=== PATIENT | male | born 1945 | race African-American/Black ===

== ENCOUNTER 2020-11-27 16:48 | Inpatient (IN) | payer MEDICARE, OTHER ==
[~2020-11-27] VITALS: Ht 180.3 cm; Wt 167.8 kg
[2020-11-27 17:53] LABS: BASOPHILS # (AUTO) 0.1 (0.0-0.1); BASOPHILS % 0.8 % (0.0-1.0); EOSINOPHILS # (AUTO) 0.2 (0.0-0.4); EOSINOPHILS % 1.7 % (0.0-6.0); HEMATOCRIT 36.6 % (38.2-49.6); HEMOGLOBIN 11.5 g/dL (14.0-18.0); LYMPHOCYTES # (AUTO) 1.2 (1.0-3.2); LYMPHOCYTES % 13.6 % (18.0-39.1); MEAN CORPUSCULAR HEMOGLOBIN 31.7 pg (28-32); MEAN CORPUSCULAR HGB CONC 31.4 g/dL (31-35); MEAN CORPUSCULAR VOLUME 100.8 fL (81-99); MONOCYTES # (AUTO) 0.5 (0.2-0.8); MONOCYTES % 5.4 % (4.4-11.3); NEUTROPHILS # (AUTO) 6.8 (2.1-6.9); NEUTROPHILS % 78.2 % (38.7-80.0); PLATELET COUNT 199 x10e3/uL (140-360); RED BLOOD COUNT 3.63 x10e6/uL (4.3-5.7); RED CELL DISTRIBUTION WIDTH 13.3 % (11.7-14.4)
[2020-11-27 18:06] LABS: ALBUMIN 3.8 g/dL (3.5-5.0); ANION GAP 18.5 mmol/L (8-16); CALCIUM 9.5 mg/dL (8.4-10.2); CREATININE, SERUM 1.57 mg/dL (0.72-1.25); POTASSIUM 4.5 mmol/L (3.5-5.1)
[2020-11-27 18:12] LABS: CREATINE KINASE MB 1.3 ng/mL (0-5.0)
[2020-11-27] MEDS ORDERED: DEXTROSE 50% SYRINGE 50 ML IV PRN (18:45)
[2020-11-27] MEDS ORDERED: ASPIRIN 81 MG CHEW TAB PO ONE (18:45)
[2020-11-27] MEDS: SODIUM CHLORIDE 0.9% 1000ML 1,000 ML IV SCH (19:41)
[2020-11-27 20:48] LABS: PROTHROMBIN TIME 13.4 seconds (11.9-14.5)
[2020-11-27] MEDS: INSULIN REGULAR, HUMAN 100 UNIT/1 ML SQ SCH (21:00)
[2020-11-28 07:20] LABS: CREATINE KINASE MB 1.2 ng/mL (0-5.0)
[2020-11-28] MEDS: INSULIN REGULAR, HUMAN 100 UNIT/1 ML SQ SCH ×4 (07:30→20:11)
[2020-11-28] MEDS: HYDRALAZINE HCL 25 MG TAB PO SCH ×3 (08:45→20:48)
[2020-11-28] MEDS ORDERED: SODIUM CHLORIDE 0.9% 250ML 250 ML ONE (14:12)
[2020-11-28] MEDS ORDERED: MIDAZOLAM HCL 2 MG/2 ML VIAL ONE (14:33)
[2020-11-28] MEDS: SODIUM CHLORIDE 0.9% 1000ML 1,000 ML IV SCH (14:45)
[2020-11-28] MEDS ORDERED: HYDRALAZINE HCL 20 MG/ML VIAL ONE (15:25)
[2020-11-28 17:00] VITALS: BP 177/87
[2020-11-28] MEDS ORDERED: MORPHINE SULFATE INJ 2 MG/ML SYR IV PRN (17:00)
[2020-11-28 17:28] VITALS: BP 177/87
[2020-11-28] MEDS: FAMOTIDINE 20 MG TAB PO SCH (17:45)
[2020-11-28] MEDS ORDERED: HYDROCHLOROTHIA25 MG PO (18:24)
[2020-11-28] MEDS ORDERED: ATORVASTATIN CA40 MG PO (18:24)
[2020-11-28] MEDS ORDERED: LISINOPRIL10 MG PO (18:24)
[2020-11-28] MEDS ORDERED: [UNRECOGNIZED DRUG - OTHER] PO (18:24)
[2020-11-28] MEDS ORDERED: AMLODIPINE BESY10 MG PO (18:24)
[2020-11-28] MEDS ORDERED: HUMALOG MI100 UNIT/2 SQ (18:24)
[2020-11-28] MEDS ORDERED: METFORMIN HCL500 MG PO (18:24)
[2020-11-28 18:40] LABS: CREATINE KINASE MB 1.2 ng/mL (0-5.0)
[2020-11-28 19:46] VITALS: BP 178/84
[2020-11-28 20:14] VITALS: BP 178/84
[2020-11-28] MEDS: METOPROLOL TARTRATE 25 MG TAB PO SCH (21:46)
[2020-11-28] MEDS: ACETAMINOPHEN 325 MG TAB PO PRN (23:42)
[2020-11-29] VITALS (8 sets, daily range): BP systolic 145–219; BP diastolic 60–97
[2020-11-29] MEDS ORDERED: METOPROLOL TARTRATE INJ 1 MG/ML VIAL IV PRN (05:15)
[2020-11-29] MEDS: METOPROLOL TARTRATE 25 MG TAB PO SCH ×3 (06:13→22:02)
[2020-11-29] MEDS ORDERED: ALBUTEROL/IPRATROPIUM 3 ML NEB NEB SCH (07:00)
[2020-11-29] MEDS: INSULIN REGULAR, HUMAN 100 UNIT/1 ML SQ SCH ×4 (07:30→21:00)
[2020-11-29] MEDS: FAMOTIDINE 20 MG TAB PO SCH ×2 (07:30→17:27)
[2020-11-29] MEDS: ALBUTEROL/IPRATROPIUM 3 ML NEB NEB PRN ×2 (07:44→16:55)
[2020-11-29] MEDS: HYDRALAZINE HCL 25 MG TAB PO SCH ×3 (09:00→21:09)
[2020-11-29 10:29] LABS: BASOPHILS # (AUTO) 0.1 (0.0-0.1); BASOPHILS % 0.5 % (0.0-1.0); EOSINOPHILS # (AUTO) 0.1 (0.0-0.4); EOSINOPHILS % 0.9 % (0.0-6.0); HEMATOCRIT 36.6 % (38.2-49.6); HEMOGLOBIN 11.5 g/dL (14.0-18.0); LYMPHOCYTES # (AUTO) 0.6 (1.0-3.2); LYMPHOCYTES % 6.4 % (18.0-39.1); MEAN CORPUSCULAR HEMOGLOBIN 31.7 pg (28-32); MEAN CORPUSCULAR HGB CONC 31.4 g/dL (31-35); MEAN CORPUSCULAR VOLUME 100.8 fL (81-99); MONOCYTES # (AUTO) 0.6 (0.2-0.8); MONOCYTES % 5.8 % (4.4-11.3); NEUTROPHILS # (AUTO) 8.6 (2.1-6.9); NEUTROPHILS % 85.8 % (38.7-80.0); PLATELET COUNT 189 x10e3/uL (140-360); RED BLOOD COUNT 3.63 x10e6/uL (4.3-5.7); RED CELL DISTRIBUTION WIDTH 13.1 % (11.7-14.4)
[2020-11-29] MEDS: SODIUM CHLORIDE 0.9% 1000ML 1,000 ML IV SCH (10:45)
[2020-11-29 10:48] LABS: ANION GAP 16.4 mmol/L (8-16); CALCIUM 9.1 mg/dL (8.4-10.2); CREATININE, SERUM 1.18 mg/dL (0.72-1.25); POTASSIUM 4.4 mmol/L (3.5-5.1)
[2020-11-29 10:52] LABS: MAGNESIUM 1.8 MG/DL (1.3-2.1); PHOSPHORUS 2.6 MG/DL (2.3-4.7)
[2020-11-29] MEDS: LISINOPRIL 20 MG TAB PO SCH (13:00)
[2020-11-29] MEDS: FUROSEMIDE INJ 10 MG/ML 4 ML VIAL IV SCH ×2 (13:11→17:27)
[2020-11-29] MEDS: ACETAMINOPHEN 325 MG TAB PO PRN (16:59)
[2020-11-30] VITALS (7 sets, daily range): BP systolic 148–155; BP diastolic 59–79
[2020-11-30] MEDS: METOPROLOL TARTRATE 25 MG TAB PO SCH (05:26)
[2020-11-30] MEDS: SODIUM CHLORIDE 0.9% 1000ML 1,000 ML IV SCH (06:45)
[2020-11-30] MEDS: FAMOTIDINE 20 MG TAB PO SCH ×2 (07:30→16:30)
[2020-11-30] MEDS: INSULIN REGULAR, HUMAN 100 UNIT/1 ML SQ SCH ×4 (07:30→20:45)
[2020-11-30] MEDS: FUROSEMIDE INJ 10 MG/ML 4 ML VIAL IV SCH ×2 (07:30→17:27)
[2020-11-30] MEDS ORDERED: LOPRESSOR25 MG PO (08:53)
[2020-11-30] MEDS ORDERED: HYDRALAZINE HCL25 MG PO (08:53)
[2020-11-30] MEDS ORDERED: FUROSEMIDE40 MG PO (08:53)
[2020-11-30] MEDS ORDERED: LISINOPRIL20 MG PO (08:53)
[2020-11-30] MEDS: LISINOPRIL 20 MG TAB PO SCH (09:00)
[2020-11-30] MEDS: HYDRALAZINE HCL 25 MG TAB PO SCH ×3 (09:00→21:50)
[2020-11-30] MEDS: METOPROLOL TARTRATE 50 MG TAB PO SCH ×2 (09:00→21:50)
[2020-11-30 10:39] LABS: HEMATOCRIT 36.6 % (38.2-49.6); HEMOGLOBIN 11.7 g/dL (14.0-18.0)
[2020-11-30 10:58] LABS: ANION GAP 17.2 mmol/L (8-16); CALCIUM 9.6 mg/dL (8.4-10.2); CREATININE, SERUM 1.18 mg/dL (0.72-1.25); POTASSIUM 4.2 mmol/L (3.5-5.1)
[2020-11-30] MEDS ORDERED: AMLODIPINE BESYLATE 10 MG TAB PO ONE (12:30)
[2020-12-01] VITALS: BP 140/69
[2020-12-01 04:00] VITALS: BP 137/94
[2020-12-01] MEDS: INSULIN REGULAR, HUMAN 100 UNIT/1 ML SQ SCH ×2 (07:30→12:21)
[2020-12-01 07:58] VITALS: BP 142/73
[2020-12-01] MEDS: FAMOTIDINE 20 MG TAB PO SCH ×2 (08:14→16:07)
[2020-12-01] MEDS: FUROSEMIDE INJ 10 MG/ML 4 ML VIAL IV SCH ×2 (08:15→16:09)
[2020-12-01] MEDS: HYDRALAZINE HCL 25 MG TAB PO SCH ×2 (08:17→15:50)
[2020-12-01 08:36] VITALS: BP 142/73
[2020-12-01] MEDS: METOPROLOL TARTRATE 50 MG TAB PO SCH (08:56)
[2020-12-01] MEDS ORDERED: AMLODIPINE BESYLATE 10 MG TAB PO SCH (09:00)
[2020-12-01 10:24] LABS: ANION GAP 16.1 mmol/L (8-16); CALCIUM 9.4 mg/dL (8.4-10.2); CREATININE, SERUM 1.04 mg/dL (0.72-1.25); POTASSIUM 4.1 mmol/L (3.5-5.1)
[2020-12-01 10:26] LABS: MAGNESIUM 1.7 MG/DL (1.3-2.1); PHOSPHORUS 2.9 MG/DL (2.3-4.7)
[2020-12-01 11:23] VITALS: BP 126/62
[2020-12-01 16:21] VITALS: BP 139/62
== END 2020-12-01 19:00 | disposition home or self-care (01) | DRG 242 ==
LOC: ER 16:58 → ERHOLD 18:43 → MED/SURG 11-28 16:45
PROVIDERS: ADMIT Internal Medicine; ATTEND Internal Medicine
PROC: 0JH606Z Insertion of Pacemaker, Dual Chamber into Chest Subcutaneous Tissue and Fascia, Open Approach (ICD-10-PCS; principal; 2020-11-27)
PROC: 02HK3JZ Insertion of Pacemaker Lead into Right Ventricle, Percutaneous Approach (ICD-10-PCS; 2020-11-27)
PROC: 02H63JZ Insertion of Pacemaker Lead into Right Atrium, Percutaneous Approach (ICD-10-PCS; 2020-11-27)
DX: I49.5 Sick sinus syndrome (principal); I50.33 Acute on chronic diastolic (congestive) heart failure; I48.92 Unspecified atrial flutter; Z68.43 Body mass index [BMI] 50.0-59.9, adult; Z79.01 Long term (current) use of anticoagulants; I11.0 Hypertensive heart disease with heart failure; E78.5 Hyperlipidemia, unspecified; E66.01 Morbid (severe) obesity due to excess calories; Z20.822 Contact with and (suspected) exposure to COVID-19
CPT/HCPCS: 33208; 36415; 71045; 80048; 80053; 80061; 82550; 82553; 82947; 82948; 83036; 83735; 83880; 84100; 84484; 85014; 85018; 85025; 85610; 85730; 93005; 96360; 96372; 99152; 99153; 99284; J0360; J0690; J1817; J1940; J2250; J7030; J7050; U0002

== ENCOUNTER → 2021-02-10 | Outpatient (CLI) | payer MEDICARE ==
[~2021-02-10] MED LIST: AMLODIPINE BESY10 MG PO; ATORVASTATIN CA40 MG PO; FUROSEMIDE40 MG PO; HUMALOG MI100 UNIT/2 SQ; HYDRALAZINE HCL25 MG PO; HYDROCHLOROTHIA25 MG PO; LISINOPRIL10 MG PO; LISINOPRIL20 MG PO; LOPRESSOR25 MG PO; METFORMIN HCL500 MG PO; REGADENOSON 0.4 MG/5 ML SYR IV ONE; [UNRECOGNIZED DRUG - OTHER] PO
== END ==
LOC: NM 08:31
PROVIDERS: ATTEND Internal Medicine Interventional Cardiology
DX: R07.9 Chest pain, unspecified (principal)
CPT/HCPCS: 78452; 93017; A9502; J2785

== ENCOUNTER → 2021-12-01 | Day surgery (SDC) | payer MEDICARE ==
[2021-11-26 11:03] LABS: BASOPHILS % 0.4 % (0.0-1.0); EOSINOPHILS # (AUTO) 0.2 (0.0-0.4); EOSINOPHILS % 2.4 % (0.0-6.0); HEMATOCRIT 37.4 % (38.2-49.6); HEMOGLOBIN 11.6 g/dL (14.0-18.0); LYMPHOCYTES # (AUTO) 0.8 (1.0-3.2); LYMPHOCYTES % 10.8 % (18.0-39.1); MEAN CORPUSCULAR HEMOGLOBIN 30.6 pg (28-32); MEAN CORPUSCULAR VOLUME 98.7 fL (81-99); MONOCYTES # (AUTO) 0.4 (0.2-0.8); MONOCYTES % 5.8 % (4.4-11.3); NEUTROPHILS # (AUTO) 5.6 (2.1-6.9); NEUTROPHILS % 80.3 % (38.7-80.0); PLATELET COUNT 275 x10e3/uL (140-360); RED BLOOD COUNT 3.79 x10e6/uL (4.3-5.7); RED CELL DISTRIBUTION WIDTH 13.9 % (11.7-14.4)
[2021-11-26 11:29] LABS: ALANINE AMINOTRANSFERASE 11 IU/L (0-55); ALBUMIN 3.5 g/dL (3.5-5.0); ALBUMIN/GLOBULIN RATIO 0.8 (0.8-2.0); ALKALINE PHOSPHATASE 128 IU/L (40-150); ANION GAP 15.3 mmol/L (8-16); BLOOD UREA NITROGEN 22 mg/dL (7-26); BUN/CREATININE RATIO 17 (6-25); CALCIUM 9.4 mg/dL (8.4-10.2); CARBON DIOXIDE 32 mmol/L (22-29); CHLORIDE 98 mmol/L (98-107); CREATININE, SERUM 1.31 mg/dL (0.72-1.25); GLUCOSE 151 mg/dL (74-118); POTASSIUM 4.3 mmol/L (3.5-5.1); SODIUM 141 mmol/L (136-145)
[~2021-12-01] VITALS: Ht 175.3 cm; Wt 149.7 kg
[2021-12-01] VITALS (8 sets, daily range): BP systolic 138–171; BP diastolic 52–85
[~2021-12-01] MED LIST changes: +BENZOCAINE 20% SPR 60 ML CAN ONE; +COLACE100 MG/10 PO; +FARXIGA5 MG; +FENTANYL CITRATE/PF 100MCG/2 ML INJ ONE; +FERROUS SU15 MG/1 ML; +METOPROLOL SUCC25 MG PO; +MIDAZOLAM HCL 2 MG/2 ML VIAL ONE; +PANTOPRAZOLE SO20 MG; +POTASSIUM CHLO10 ME1 PO; -REGADENOSON 0.4 MG/5 ML SYR IV ONE; +SODIUM CHLORIDE 0.9% 1000ML 1,000 ML ONE; +TRESIBA100 UNIT/1; +XARELTO20 MG PO
== END | disposition home or self-care (01) ==
LOC: CATH LAB 10:14
PROVIDERS: ATTEND Internal Medicine Interventional Cardiology
DX: I48.91 Unspecified atrial fibrillation (principal); I11.0 Hypertensive heart disease with heart failure; I50.42 Chronic combined systolic (congestive) and diastolic (congestive) heart failure; I25.2 Old myocardial infarction; I25.118 Atherosclerotic heart disease of native coronary artery with other forms of angina pectoris; E78.2 Mixed hyperlipidemia; Z95.818 Presence of other cardiac implants and grafts; Z95.810 Presence of automatic (implantable) cardiac defibrillator; J44.9 Chronic obstructive pulmonary disease, unspecified; E11.51 Type 2 diabetes mellitus with diabetic peripheral angiopathy without gangrene; E66.01 Morbid (severe) obesity due to excess calories; Z88.0 Allergy status to penicillin; Z01.812 Encounter for preprocedural laboratory examination; Z20.822 Contact with and (suspected) exposure to COVID-19; Z79.4 Long term (current) use of insulin; Z79.02 Long term (current) use of antithrombotics/antiplatelets; Z79.899 Other long term (current) drug therapy; Z68.43 Body mass index [BMI] 50.0-59.9, adult; Z99.3 Dependence on wheelchair
CPT/HCPCS: 0223U; 36415 ×2; 80053; 82948; 85025; 93320; 93325; C8925; J2250; J3010; J7030; 93307; 93312